=== PATIENT | male | born 1980 | race African-American/Black ===

== ENCOUNTER 2023-10-24 19:23 | Emergency (ER) | payer OTHER, MEDICAID ==
[~2023-10-24] VITALS: Ht 182.9 cm; Wt 84.0 kg
[2023-10-24 19:58] LABS: Basophils # (auto) 0 10 ^3/uL (0-0.2); Basophils % (auto) 0.8 % (0.0-2.0); Eosinophils # (auto) 0.1 10 ^3/uL (0-0.8); Eosinophils % (auto) 2.4 % (0.0-7.0); Hematocrit 28.5 % (41.0-53.0); Hemoglobin 9.8 g/dL (13.5-17.5); Lymphocytes # (auto) 1.5 10 ^3/uL (0.4-5.4); Lymphocytes % (auto) 31.2 % (10.0-50.0); Mean Corpuscular Hemoglobin 30.2 pg (28.0-32.0); Mean Corpuscular Hgb Conc. 34.5 g/dL (32.0-36.0); Mean Corpuscular Volume 87.7 fL (80.0-100.0); Monocytes # (auto) 0.4 10 ^3/uL (0-1.3); Monocytes % (auto) 7.6 % (0.0-12.0); Neutrophils # (auto) 2.8 10 ^3/uL (1.6-8.6); Red Blood Cells 3.25 10^6/uL (4.5-5.90); Red Cell Distribution Width 15.3 % (11.8-14.3); White Blood Cell 4.9 10^3/uL (4.4-10.8)
[2023-10-24 20:14] LABS: Alanine Aminotransferase 13 U/L (7-40); Albumin 4.2 g/dL (3.2-4.8); Alkaline Phosphatase 162 U/L (46-116); Anion Gap 5 (5-15); Aspartate Aminotransferase 10 U/L (13-40); BUN/Creatinine Ratio 3.9 (10.0-20.0); Bilirubin, Total 0.7 mg/dL (0.2-1.0); Blood Urea Nitrogen 31 mg/dL (9-23); Calcium 7.5 mg/dL (8.7-10.4); Carbon Dioxide 31 mmol/L (20-30); Chloride 101 mmol/L (98-107); Glucose 128 mg/dL (74-106); Sodium 137 mmol/L (136-145); Total Protein 7.2 g/dL (5.7-8.2)
[2023-10-24 20:23] LABS: Potassium 5.6 mmol/L (3.5-5.1)
[2023-10-24 20:27] LABS: INR 1.06 (0.9-1.15); Prothrombin Time 11.1 sec (9.3-11.8)
[2023-10-24] MEDS ORDERED: AUG875T PO (21:24)
[2023-10-24 23:15] VITALS: TEMP 98.6; O2SAT 99
[2023-10-24 23:20] VITALS: BP 138/98; PULSE 79; RESP 19
[2023-10-24] MEDS: MORPHINE SULFATE 4 MG/ML SYR/VIAL IM ONE (23:20)
== END 2023-10-24 23:22 | disposition home or self-care (01) ==
LOC: ER 19:23 → EDBD 19:23 → ER 23:22
DX: R04.0 Epistaxis (principal); I12.0 Hypertensive chronic kidney disease with stage 5 chronic kidney disease or end stage renal disease; N18.6 End stage renal disease
CPT/HCPCS: 30901; 36415; 80053; 85025; 85610; 85730; 96372; 99284; J2270